=== PATIENT | female | born 1995 | race Caucasian/White ===

== ENCOUNTER 2020-08-27 00:12 | Emergency (ER) | payer SELFPAY ==
[2020-08-27 00:14] VITALS: BP 118/87; PULSE 87; RESP 18; TEMP 36.2; O2SAT 98
[2020-08-27 01:03] LABS: Basophils Percent Auto 0.4 % (0.2-1.2); Eosinophils Percent Auto 0.1 % (0-4.4); Hematocrit 42.3 % (37.0-47.0); Hemoglobin 14.1 g/dL (12.0-15.0); Immature Granulocyte Absolute 0.02 K/mm3 (0.00-0.031); Immature Granulocyte Percent A 0.2 % (0-0.5); Lymphocytes Absolute Auto 2.32 K/mm3 (0.9-3.2); Lymphocytes Percent Auto 22.1 % (18.3-44.2); Mean Corpuscular HGB Conc 33.3 g/dl (32-36); Mean Corpuscular Hemoglobin 31.4 pg (26-34); Mean Corpuscular Volume 94.2 fl (80-100); Mean Platelet Volume 10.6 fl (7.4-10.4); Monocytes Percent Auto 9.4 % (2.6-8.5); Neutrophils Absolute Auto 7.1 K/mm3 (1.3-6.7); Neutrophils Percent Auto 67.8 % (45.5-73.1); Platelet Count Result 278 k/mm3 (150-375); Red Blood Count 4.49 M/mm3 (4.2-5.4); Red Cell Distribution Width 12.4 % (11.5-14.5); White Blood Count 10.5 K/mm3 (4.5-10.0)
[2020-08-27 01:09] LABS: Add Urine Microscopic? YES; Appearance Urine Cloudy (Clear); Bacteria Urine Trace /hpf; Bilirubin Urine Negative (Negative); Blood Urine 2+ (Negative); Color Urine Yellow (Yellow); Glucose Urine UA Negative (Negative); Ketones Urine Negative (Negative); Leukocyte Esterase Ur 3+ LEU/UL (Negative); Nitrate Urine Negative (Negative); Protein Urine 2+ mg/dL (Negative); Specific Grav Ur 1.008 (1.001-1.035); Squamous Epithelial Cell Urine Rare /hpf (Few); Urobilinogen Urine Negative mg/dL (<2.0); WBC Clumps Urine Present /HPF; WBC Urine >75 /hpf
[2020-08-27 01:16] LABS: Anion Gap 11 mmol/L (8-16); Blood Urea Nitrogen 9 mg/dL (7-17); Calcium 9.1 mg/dL (8.4-10.2); Carbon Dioxide 23 mmol/L (22-30); Chloride 108 mmol/L (98-107); Estimated CRCL calculation 101 ml/min; Estimated Glomerular Filt Rate > 60; Glucose 91 mg/dL (65-105); Potassium 3.9 mmol/L (3.4-5.0); Sodium 142 mmol/L (137-145)
--- NOTE | 2020-08-27 01:26 | ED.GENADULT ---
HPI - General Adult General Chief complaint: Urogenital-Female Stated complaint: Right sided flank pain Time Seen by Provider: 08/27/20 00:24 History of Present Illness HPI narrative: Patient is a 24-year-old female who presents ER with concerns for UTI/kidney infection. Patient reports she started having burning urination about 1 week ago. It is persisted over the last week and she start developed pain in her lower abdomen and right flank. No fevers or chills or sweats. Mild nausea but no vomiting. Has not taken any antibiotics. Tried to go to urgent care today for a televisit but it did not end up occurring so she came here for further evaluation. Related Data Home Medications Medication Instructions Recorded Confirmed fluoxetine mg 08/27/20 Allergies Allergy/AdvReac Type Severity Reaction Status Date / Time red dye Allergy Unknown Unknown Verified 08/27/20 00:19 Review of Systems Review of Systems: All systems reviewed & are unremarkable except as noted in HPI and below Constitutional: Constitutional: Denies chills, Denies fever(s) and Denies weakness Gastrointestinal: Gastrointestinal: Reports abdominal pain, Denies diarrhea, Reports nausea and Denies vomiting Genitourinary: Genitourinary: Reports nocturia, Reports dysuria and Reports flank pain PMFSH Past Medical History Medical History (Updated 08/27/20 @ 01:43 by Alex Perdomo MD) Healthy female adult Ovarian cyst Surgical History Surgical History (Updated 08/27/20 @ 01:42 by Alex Perdomo MD) History of appendectomy Social History Social History (Updated 08/27/20 @ 01:42 by Alex Perdomo MD) Tobacco type: e-cigarettes/vaping Alcohol intake: current Substance use type: marijuana Exam Narrative: Exam Narrative: GENERAL: Well-appearing, well-nourished, and in no acute distress. HEAD: Normocephalic, atraumatic. CHEST: Clear to auscultation. No respiratory distress. HEART: Regular rate and rhythm. Normal peripheral pulses. ABDOMEN: Soft, mild RUQ tenderness w/o guarding, nondistended. Right CVA tenderness EXTREMITIES: Normal range of motion. No edema. NEURO: Alert and oriented x3. PSYCH: Normal mood and affect. Course Course Emergency Course: Informed of results. Gave Cipro p.o. here and will discharge home with additional antibiotic. Discussed return precautions and patient verbalized understanding. Vital Signs Vital signs: Vital Signs Temperature 97.2 F L 08/27/20 00:14 Pulse Rate 87 08/27/20 00:14 Respiratory Rate 18 08/27/20 00:14 Blood Pressure 118/87 08/27/20 00:14 Pulse Oximetry 98 08/27/20 00:14 Temperature 97.2 F L 08/27/20 00:14 Pulse Rate 87 08/27/20 00:14 Respiratory Rate 18 08/27/20 00:14 Blood Pressure 118/87 08/27/20 00:14 Pulse Oximetry 98 08/27/20 00:14 Medical Decision Making Vital Signs Vital Signs: Vital Signs Temperature 97.2 F L 08/27/20 00:14 Pulse Rate 87 08/27/20 00:14 Respiratory Rate 18 08/27/20 00:14 Blood Pressure 118/87 08/27/20 00:14 Pulse Oximetry 98 08/27/20 00:14 Temperature 97.2 F L 08/27/20 00:14 Pulse Rate 87 08/27/20 00:14 Respiratory Rate 18 08/27/20 00:14 Blood Pressure 118/87 08/27/20 00:14 Pulse Oximetry 98 08/27/20 00:14 Lab Data Result diagrams: 08/27/20 00:54 08/27/20 00:54 Labs: Lab Results 08/27/20 08/27/20 08/27/20 Range/Units 00:54 00:54 00:55 WBC 10.5 H (4.5-10.0) K/mm3 RBC 4.49 (4.2-5.4) M/mm3 Hgb 14.1 (12.0-15.0) g/dL Hct 42.3 (37.0-47.0) % MCV 94.2 (80-100) fl MCH 31.4 (26-34) pg MCHC 33.3 (32-36) g/dl RDW 12.4 (11.5-14.5) % Plt Count 278 (150-375) k/mm3 MPV 10.6 H (7.4-10.4) fl Immature Gran % (Auto) 0.2 (0-0.5) % Neut % (Auto) 67.8 (45.5-73.1) % Lymph % (Auto) 22.1 (18.3-44.2) % [place] % (Auto) 9.4 H (2.6-8.5) % Eos % (Auto) 0.1 (0-4.4) % Baso % (Auto) 0.4
[2020-08-27] MEDS: CIPROFLOXACIN 500 MG TAB PO (01:36)
[2020-08-27 02:01] VITALS: BP 134/70; PULSE 80; RESP 18; O2SAT 100
== END 2020-08-27 02:06 | disposition home or self-care (01) ==
PROVIDERS: Emergency Provider Emergency Medicine; PCP Nurse Practitioner Family
DX: N12 Tubulo-interstitial nephritis, not specified as acute or chronic (principal); F17.290 Nicotine dependence, other tobacco product, uncomplicated
CPT/HCPCS: 36415; 80048; 81001; 81025; 85025; 87077; 87086; 87088; 87186; 99283; A9270